=== PATIENT | female | born 1970 ===

== ENCOUNTER 2016-11-25 16:14 | Emergency (ER) | payer MEDICAID, OTHER ==
[2016-11-25 16:15] VITALS: BMI 42.8
--- NOTE | 2016-11-25 17:08 | C.PDOC ---
Chief Complaint (Nursing): Dizziness/Lightheaded Past Medical History Vital Signs: Last Vital Signs Temp 97.9 F 11/25/16 16:39 Pulse 85 11/25/16 16:39 Resp 16 11/25/16 16:39 BP 107/72 11/25/16 16:39 Pulse Ox 100 11/25/16 16:39 - Medical History PMH: Anxiety, Arthritis, Asthma, Depression, HTN Denies: HIV, Chronic Kidney Disease, Seizures, Sexually Transmitted Disease Family History: States: Unknown Family Hx - Social History Hx Tobacco Use: No Hx Alcohol Use: No Hx Substance Use: No - Immunization History Hx Tetanus Toxoid Vaccination: No Hx Influenza Vaccination: No Hx Pneumococcal Vaccination: No ED Course And Treatment O2 Sat by Pulse Oximetry: 100 Disposition - Disposition
[2016-11-25] MEDS ORDERED: Sodium Chloride 0.9% 1,000 ML IV ONE (17:15)
--- NOTE | 2016-11-25 17:24 | C.PDOC ---
Time Seen by Provider: 11/25/16 16:55 Chief Complaint (Nursing): Dizziness/Lightheaded Past Medical History Vital Signs: Last Vital Signs Temp 97.9 F 11/25/16 16:39 Pulse 85 11/25/16 16:39 Resp 16 11/25/16 16:39 BP 107/72 11/25/16 16:39 Pulse Ox 100 11/25/16 16:39 - Medical History PMH: Anxiety, Arthritis, Asthma, Depression, HTN Denies: HIV, Chronic Kidney Disease, Seizures, Sexually Transmitted Disease Family History: States: Unknown Family Hx - Social History Hx Tobacco Use: No Hx Alcohol Use: No Hx Substance Use: No - Immunization History Hx Tetanus Toxoid Vaccination: No Hx Influenza Vaccination: No Hx Pneumococcal Vaccination: No ED Course And Treatment O2 Sat by Pulse Oximetry: 100 Disposition - Disposition Forms: [employer] (Swedish)
--- NOTE | 2016-11-25 17:25 | C.PDOC ---
History Of Present Illness 46 y/o female with PMHx of HTN presents to ED with complaints of dizziness and lightheadedness with associated vision changes developing today. Patient also reports palpitations and denies shortness of breath, loc, headache, trauma or any other complaints at this time. Time Seen by Provider: 11/25/16 16:55 Chief Complaint (Nursing): Dizziness/Lightheaded History Per: Patient History/Exam Limitations: no limitations Onset/Duration Of Symptoms: Hrs Current Symptoms Are (Timing): Still Present Past Medical History Reviewed: Historical Data, Nursing Documentation, Vital Signs Vital Signs: Last Vital Signs Temp 97.9 F 11/25/16 16:39 Pulse 85 11/25/16 16:39 Resp 16 11/25/16 16:39 BP 107/72 11/25/16 16:39 Pulse Ox 100 11/25/16 18:58 - Medical History PMH: Anxiety, Arthritis, Asthma, Depression, HTN Surgical History: No Surg Hx Family History: States: No Known Family Hx - Social History Hx Tobacco Use: No Hx Alcohol Use: No Hx Substance Use: No - Immunization History Hx Tetanus Toxoid Vaccination: No Hx Influenza Vaccination: No Hx Pneumococcal Vaccination: No Review Of Systems Constitutional: Negative for: Fever, Chills Eyes: Negative for: Vision Change Cardiovascular: Positive for: Palpitations, Light Headedness Respiratory: Negative for: Shortness of Breath Gastrointestinal: Negative for: Nausea, Vomiting Neurological: Positive for: Dizziness. Negative for: Weakness, Numbness Psych: Negative for: Anxiety Physical Exam - Physical Exam Appears: Non-toxic, No Acute Distress Skin: Warm, Dry, No Rash Head: Atraumatic, Normacephalic Eye(s): bilateral: Normal Inspection, PERRL, EOMI Oral Mucosa: Moist Neck: Normal ROM, Supple Chest: Symmetrical Cardiovascular: Rhythm Regular Respiratory: Normal Breath Sounds, No Rales, No Rhonchi, No Wheezing Gastrointestinal/Abdominal: Soft, No Tenderness, No Guarding, No Rebound Extremity: Normal ROM, No Pedal Edema, Capillary Refill (<2 seconds) Extremity: Bilateral: Atraumatic Pulses: Left Radial: Normal, Right Radial: Normal Neurological/Psych: Oriented x3, Normal Speech, Normal Cognition, Normal Motor, Normal Sensation ED Course And Treatment - Laboratory Results Result Diagrams: 11/25/16 18:18 11/25/16 17:19 Lab Interpretation: No Acute Changes Urine POC: Negative ECG: Interpreted By Me ECG Rhythm: Sinus Rhythm ECG Interpretation: Normal Rate From EC O2 Sat by Pulse Oximetry: 100 (RA) Pulse Ox Interpretation: Normal - CT Scan/US No standard instances Other Rad Studies (CT/US): Read By Radiologist, Radiology Report Reviewed CT/US Interpretation: FINDINGS: HEMORRHAGE: No intracranial hemorrhage. BRAIN : There are mild chronic microangiopathic changes. There is no mass, mass effect or abnormal extra-axial fluid collection. VENTRICLES: The ventricles are normal in size, shape and configuration. CALVARIUM: The skull base and calvarium are normal. PARANASAL SINUSES: Predominantly clear. MASTOID AIR CELLS: Predominantly clear. OTHER FINDINGS: None. IMPRESSION: No acute intracranial abnormality. Progress Note: Treated with IVF NSS. Treated with meclizine 25 mg PO. On re- evaluation feeling better. Neuro intact, ambulating with steady gait Reassessment Condition: Improved Medical Decision Making Medical Decision Making: Plan: Blood work, CT scan Disposition Counseled Patient/Family Regarding: Studies Performed, Diagnosis, Need For Followup, Rx Given - Disposition Referrals: [facility] [Outside] [facility] [Outside] Disposition: HOME/ ROUTINE Disposition Time: 19:00 Condition: STABLE Additional Instructions: Follow up with your PMD or clinic Return to ED if any increase symptoms Prescriptions: Meclizine [Meclizine*] 25 mg PO Q12 PRN #10 tab PRN Reason: Dizziness Instructions: Vertigo (ED), Dizziness (ED) Forms: [employer] (Hungarian) - POA Present On Arrival: None - Clinical Impression Clinical Impression: Dizziness - PA / IMPROVEMENT INTERN / Resident Statement MD/DO has reviewed & agrees with the documentation as recorded. - Scribe Statement The provider has reviewed the documentation as recorded by the Lopezibhamilton Lala All medical record entries made by the Dayana were at my direction and personally dictated by me. I have reviewed the chart and agree that the record accurately reflects my personal performance of the history, physical exam, medical decision making, and the department course for this patient. I have also personally directed, reviewed, and agree with the discharge instructions and disposition.
[2016-11-25 17:32] LABS: CHLORIDE 100 mmol/L (98-107)
[2016-11-25 17:33] LABS: POTASSIUM 3.6 mmol/L (3.6-5.2); SODIUM 134 mmol/L (132-148)
[2016-11-25 17:35] LABS: BILIRUBIN,TOTAL 0.4 mg/dL (0.2-1.3); CARBON DIOXIDE 24 mmol/L (22-30); GFR AFRICAN-AMERICAN > 60
[2016-11-25 17:36] LABS: ALB/GLOB RATIO 1.2 (1.0-2.1); ALKALINE PHOSPHATASE 85 U/L (38-126); ALT/SGPT 35 U/L (9-52); AST/SGOT 27 U/L (14-36); BLOOD UREA NITROGEN 11 mg/dL (7-17); CALCIUM 8.8 mg/dl (8.6-10.4); GLUCOSE,RANDOM 77 mg/dL (65-105); TOTAL PROTEIN 7.6 g/dL (6.3-8.3)
--- NOTE | 2016-11-25 17:48 | CT ---
PROCEDURE: CT HEAD WITHOUT CONTRAST. HISTORY: Dizziness COMPARISON: None available. TECHNIQUE: Axial computed tomography images were obtained through the head/brain without intravenous contrast. Radiation dose: Total exam DLP = 831.47 mGy-cm. This CT exam was performed using one or more of the following dose reduction techniques: Automated exposure control, adjustment of the mA and/or kV according to patient size, and/or use of iterative reconstruction technique. FINDINGS: HEMORRHAGE: No intracranial hemorrhage. BRAIN: There are mild chronic microangiopathic changes. There is no mass, mass effect or abnormal extra-axial fluid collection. VENTRICLES: The ventricles are normal in size, shape and configuration. CALVARIUM: The skull base and calvarium are normal. PARANASAL SINUSES: Predominantly clear. MASTOID AIR CELLS: Predominantly clear. OTHER FINDINGS: None. IMPRESSION: No acute intracranial abnormality.
[2016-11-25 17:49] LABS: RBC URINE 1 /hpf (0-3); URINE BILIRUBIN NEGATIVE (NEGATIVE); URINE BLOOD NEGATIVE (NEGATIVE); URINE COLOR Yellow (YELLOW); URINE GLUCOSE (UA) NORMAL (Normal); URINE KETONE NEGATIVE (NEGATIVE); URINE LEUKOCYTE ESTERASE NEG Leu/uL (Negative); URINE PROTEIN NEGATIVE (NEGATIVE); URINE UROBILINOGEN NORMAL mg/dL (0.2-1.0); WBC URINE 2 /hpf (0-5)
[2016-11-25 18:23] LABS: BASO # 0.1 K/uL (0.0-0.2); BASO % 1.2 % (0.0-2.0); EOS # 0.3 K/uL (0.0-0.7); EOS % 3.7 % (0.0-4.0); HEMATOCRIT 29.5 % (34.0-47.0); LYMPH # 2.1 K/uL (1.0-4.3); LYMPH % 23.8 % (20.0-40.0); MEAN CORPUSCULAR HEMOGLOBIN 25.9 pg (27.0-31.0); MEAN CORPUSCULAR HGB CONC 31.9 g/dL (33.0-37.0); MEAN PLATELET VOLUME 11.6 fL (7.2-11.7); MONO # 0.9 K/uL (0.0-0.8); MONO % 10.1 % (0.0-10.0); RED CELL DISTRIBUTION WIDTH 15.7 % (11.5-14.5); WHITE BLOOD COUNT 8.7 K/uL (4.8-10.8)
[2016-11-25 18:26] LABS: MEAN CELL VOLUME 81.2 fL (81.0-99.0)
[2016-11-25 19:12] VITALS: BP 110/78; PULSE 78; RESP 18; TEMP 98.2; O2SAT 98
--- NOTE | 2016-11-27 12:27 | CARD ---
APPROVED REPORT EKG Measurement Heart [id number] RI 132P22 [id number] <Conclusion> Normal sinus rhythm Normal ECG
== END 2016-11-25 19:11 | disposition home or self-care (01) ==
LOC: C.ER 16:14
DX: R42 Dizziness and giddiness (principal)
CPT/HCPCS: 70450; 80053; 81001; 82948; 84703; 85025; 93005; 96360; 99285; J7040

== ENCOUNTER 2017-04-12 22:24 | Emergency (ER) | payer MEDICAID, OTHER ==
[2017-04-12 22:24] VITALS: BMI 42.8
[2017-04-12] MEDS ORDERED: Albuterol-Ipratrop 3 mg / 0.5 (3 ml) UD INH STA ×3 (22:49→22:50)
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
[2017-04-12] MEDS ORDERED: Sodium Chloride 0.9% 1,000 ML IV ONE (22:51)
[2017-04-12] MEDS ORDERED: Albuterol-Ipratrop 3 mg / 0.5 (3 ml) UD ONE (22:52)
--- NOTE | 2017-04-12 22:53 | C.PDOC ---
Chief Complaint (Nursing): Shortness Of Breath Past Medical History Vital Signs: Last Vital Signs Temp 97.9 F 04/12/17 22:34 Pulse 88 04/12/17 22:34 Resp 16 04/12/17 22:34 BP 129/85 04/12/17 22:34 Pulse Ox 99 04/12/17 22:34 - Medical History PMH: Anxiety, Arthritis, Asthma, Back Problems, Depression, HTN Denies: HIV, Chronic Kidney Disease, Seizures, Sexually Transmitted Disease Family History: States: Unknown Family Hx - Social History Hx Tobacco Use: No Hx Alcohol Use: No Hx Substance Use: No - Immunization History Hx Tetanus Toxoid Vaccination: No Hx Influenza Vaccination: No Hx Pneumococcal Vaccination: No ED Course And Treatment O2 Sat by Pulse Oximetry: 99 Disposition - Disposition
[2017-04-12] MEDS ORDERED: MethylPREDNISolone 40 mg Vial IVP ONE (22:56)
[2017-04-12 22:57] LABS: BASO # 0.1 K/uL (0.0-0.2); BASO % 0.9 % (0.0-2.0); EOS # 0.6 K/uL (0.0-0.7); EOS % 6.5 % (0.0-4.0); HEMOGLOBIN 11.7 g/dL (11.0-16.0); LYMPH # 2.2 K/uL (1.0-4.3); LYMPH % 23.2 % (20.0-40.0); MEAN CORPUSCULAR HGB CONC 33.5 g/dL (33.0-37.0); MEAN PLATELET VOLUME 10.9 fL (7.2-11.7); MONO # 0.9 K/uL (0.0-0.8); MONO % 9.3 % (0.0-10.0); NEUT # 5.8 K/uL (1.8-7.0); NEUT % 60.1 % (50.0-75.0); RBC 4.04 Mil/uL (3.80-5.20); RED CELL DISTRIBUTION WIDTH 22.5 % (11.5-14.5)
[2017-04-12 22:58] LABS: MEAN CELL VOLUME 86.6 fL (81.0-99.0); WHITE BLOOD COUNT 9.7 K/uL (4.8-10.8)
[2017-04-12 23:09] LABS: ALT/SGPT 29 U/L (9-52); AST/SGOT 31 U/L (14-36); BLOOD UREA NITROGEN 13 mg/dL (7-17); CALCIUM 9.3 mg/dl (8.6-10.4); GFR AFRICAN-AMERICAN > 60; GFR NON-AFRICAN AMERICAN > 60
[2017-04-13 00:19] VITALS: BP 100/65; PULSE 86; RESP 18; TEMP 97.4
[2017-04-13 00:30] VITALS: O2SAT 99
--- NOTE | 2017-04-13 08:26 | RAD ---
Chest x-ray two views History: Shortness of breath. Comparison: 11/10/2015 Findings: No focal infiltrate or effusion. Bibasilar breast nipple shadows. Heart size within normal limits. Impression: No focal infiltrate or effusion.
--- NOTE | 2017-04-13 19:50 | CARD ---
APPROVED REPORT EKG Measurement Heart [id number] DC 130P47 [id number] <Conclusion> Normal sinus rhythm Normal ECG
== END 2017-04-13 00:56 | disposition home or self-care (01) ==
LOC: C.ER 22:24
DX: J45.909 Unspecified asthma, uncomplicated (principal); I10 Essential (primary) hypertension
CPT/HCPCS: 71046; 80053; 85025; 93005; 94640; 96374; 99283; J2920; J7040

== ENCOUNTER 2017-06-03 16:31 | Emergency (ER) | payer MEDICAID, OTHER ==
[2017-06-03 16:31] VITALS: BMI 42.8
--- NOTE | 2017-06-03 18:20 | RAD ---
PROCEDURE: Left Ankle Radiographs. HISTORY: ankle injury, pain COMPARISON: None FINDINGS: BONES: No acute fracture. Large plantar calcaneal spur. JOINTS: Normal. No osteoarthritis. Ankle mortise maintained. Talar dome intact SOFT TISSUES: Normal. OTHER FINDINGS: None. IMPRESSION: No acute findings related to/accounting for the clinical presentation. Additional benign and/or incidental findings described above. Concordant results with the preliminary interpretation rendered by the emergency department physician procedure.
--- NOTE | 2017-06-03 18:20 | RAD ---
PROCEDURE: Radiographs of the left tibia and fibula. HISTORY: injury and pain COMPARISON: None available. TECHNIQUE: Frontal and lateral views obtained. FINDINGS: BONES: No fracture or destructive lesion. JOINT SPACES: Unremarkable. OTHER FINDINGS: None. IMPRESSION: Unremarkable radiographs of the left tibia and fibula. Concordant results with the preliminary interpretation rendered by the emergency department physician procedure.
--- NOTE | 2017-06-03 18:21 | RAD ---
PROCEDURE: Right Knee Radiographs. HISTORY: Posttraumatic pain COMPARISON: None. FINDINGS: BONES: Normal. No fracture. JOINTS: Normal. No osteoarthritis. JOINT EFFUSION: None. OTHER FINDINGS: None. IMPRESSION: Normal radiographs of the right knee. Concordant results with the preliminary interpretation rendered by the emergency department physician procedure.
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
[2017-06-03 18:31] VITALS: BP 136/91; PULSE 82; RESP 18; TEMP 98.1
[2017-06-03 22:17] VITALS: O2SAT 99
== END 2017-06-03 18:48 | disposition home or self-care (01) ==
LOC: C.ER 16:31
DX: S83.91XA Sprain of unspecified site of right knee, initial encounter (principal); S93.402A Sprain of unspecified ligament of left ankle, initial encounter; X50.1XXA Overexertion from prolonged static or awkward postures, initial encounter; Y93.02 Activity, running; Y92.89 Other specified places as the place of occurrence of the external cause

== ENCOUNTER 2017-06-25 20:40 | Emergency (ER) | payer MEDICAID, OTHER ==
[2017-06-25 20:40] VITALS: BMI 42.8
[2017-06-25] MEDS ORDERED: Belladonna-Phenobarbital PO STA (21:28)
[2017-06-25] MEDS ORDERED: Lactated Ringer's 1,000 ML IVB STA (21:29)
[2017-06-25] MEDS ORDERED: Belladonna-Phenobarbital ONE (21:49)
[2017-06-25] MEDS ORDERED: Lactated Ringer's 1,000 ML ONE (21:50)
[2017-06-25 22:01] LABS: SQUAMOUS EPITHIAL 9 /hpf (0-5); URINE BILIRUBIN NEGATIVE (NEGATIVE); URINE BLOOD 1+ (NEGATIVE); URINE CLARITY Hazy (Clear); URINE COLOR Amber (YELLOW); URINE GLUCOSE (UA) NORMAL (Normal); URINE LEUKOCYTE ESTERASE 1+ Leu/uL (Negative); URINE PROTEIN 1+ mg/dL (NEGATIVE); URINE UROBILINOGEN NORMAL mg/dL (0.2-1.0)
[2017-06-25 22:03] LABS: HCG,QUALITATIVE URINE NEGATIVE (NEGATIVE)
[2017-06-25 22:10] LABS: ALBUMIN 3.9 g/dL (3.5-5.0); BASO # 0.1 K/uL (0.0-0.2); BASO % 1.9 % (0.0-2.0); CALCIUM 9.5 mg/dl (8.6-10.4); EOS # 0.3 K/uL (0.0-0.7); EOS % 5.4 % (0.0-4.0); GFR AFRICAN-AMERICAN > 60; GFR NON-AFRICAN AMERICAN > 60; HEMOGLOBIN 12.4 g/dL (11.0-16.0); LIPASE 63 U/L (23-300); LYMPH # 1.7 K/uL (1.0-4.3); LYMPH % 26.5 % (20.0-40.0); MEAN CELL VOLUME 88.9 fL (81.0-99.0); MEAN CORPUSCULAR HEMOGLOBIN 30.4 pg (27.0-31.0); MEAN CORPUSCULAR HGB CONC 34.2 g/dL (33.0-37.0); MONO # 0.7 K/uL (0.0-0.8); MONO % 11.6 % (0.0-10.0); NEUT # 3.4 K/uL (1.8-7.0); NEUT % 54.6 % (50.0-75.0); NRBC % 0.1 % (0.0-2.0); RBC 4.07 Mil/uL (3.80-5.20); RED CELL DISTRIBUTION WIDTH 13.2 % (11.5-14.5); WHITE BLOOD COUNT 6.2 K/uL (4.8-10.8)
[2017-06-25 22:11] LABS: ALT/SGPT 28 U/L (9-52); AST/SGOT 26 U/L (14-36); BLOOD UREA NITROGEN 8 mg/dL (7-17)
[2017-06-25] MEDS ORDERED: Iodixanol 320 MG/ML 100 ML BOTTLE IV ONE (23:07)
--- NOTE | 2017-06-26 00:26 | CT ---
EXAM: CT Abdomen and Pelvis With Intravenous Contrast CLINICAL HISTORY: 46 years old, female; Pain; Abdominal pain; Flank; Left lower quadrant (llq); Additional info: Lower abdominal pain. Diarrhea. H/o gastric bypass TECHNIQUE: Axial computed tomography images of the abdomen and pelvis with intravenous contrast. All CT scans at this facility use one or more dose reduction techniques, viz.: automated exposure control; ma/kV adjustment per patient size (including targeted exams where dose is matched to indication; i.e. head); or iterative reconstruction technique. Coronal and sagittal reformatted images were created and reviewed. CONTRAST: 100 mL of visipaque 320 administered intravenously. COMPARISON: No relevant prior studies available. FINDINGS: Lung bases: Unremarkable. No mass. No consolidation. Mediastinum: A small hiatal hernia is present. ABDOMEN: Liver: There is diffuse mild enlargement of the liver. Gallbladder and bile ducts: Unremarkable. No calcified stones. No ductal dilation. Pancreas: Unremarkable. No mass. No ductal dilation. Spleen: Unremarkable. No splenomegaly. Adrenals: Unremarkable. No mass. Kidneys and ureters: There is a left renal collecting system calcification. The right kidney is normal. No hydronephrosis. Stomach and bowel: There has been a gastric stapling and bypass. The colon is mildly distended with fluid and air. The terminal ileum, cecum and ascending colon appear mildly thickwalled with minimal stranding of the adjacent fat. Findings could be secondary to acute ileocolitis. PELVIS: Appendix: Not visualized. Bladder: Unremarkable. No mass. Reproductive: Unremarkable as visualized. ABDOMEN and PELVIS: Intraperitoneal space: Unremarkable. No free air. No significant fluid collection. Bones/joints: No acute fracture. No dislocation. Soft tissues: Unremarkable. Vasculature: Unremarkable. No abdominal aortic aneurysm. Lymph nodes: There are multiple mildly prominent right lower quadrant mesenteric lymph nodes measuring up to 14 mm. IMPRESSION: Mildly thickwalled terminal ileum and right colon. Possible acute ileocolitis. Clinical correlation recommended. Gastric bypass. Nonspecific hepatomegaly.
[2017-06-26 00:43] VITALS: BP 125/82; PULSE 64; RESP 18; TEMP 98.5
[2017-06-26 00:44] VITALS: O2SAT 99
--- NOTE | 2017-06-26 00:44 | C.PDOC ---
Time Seen by Provider: 06/25/17 21:17 Chief Complaint (Nursing): Abdominal Pain History Per: Patient Onset/Duration Of Symptoms: Days (5) Current Symptoms Are (Timing): Still Present Severity: Moderate Location Of Pain/Discomfort: RLQ, LLQ, Suprapubic Quality Of Discomfort: "Pain" Associated Symptoms: Nausea, Diarrhea Exacerbating Factors: Food Alleviating Factors: None Additional History Per: Prior Records Past Medical History Reviewed: Historical Data, Nursing Documentation, Vital Signs Vital Signs: Last Vital Signs Temp 98.1 F 06/25/17 20:54 Pulse 79 06/25/17 20:54 Resp 20 06/25/17 20:54 BP 129/85 06/25/17 20:54 Pulse Ox 99 06/25/17 20:54 - Medical History PMH: Anxiety, Arthritis, Asthma, Back Problems, Depression, HTN Other Surgeries: Gastric Bypass Family History: States: Unknown Family Hx - Social History Hx Tobacco Use: No Hx Alcohol Use: No Hx Substance Use: No - Immunization History Hx Tetanus Toxoid Vaccination: No Hx Influenza Vaccination: No Hx Pneumococcal Vaccination: No Review Of Systems Except As Marked, All Systems Reviewed And Found Negative. Constitutional: Negative for: Fever, Weakness Cardiovascular: Negative for: Chest Pain Respiratory: Negative for: Shortness of Breath Gastrointestinal: Positive for: Nausea, Abdominal Pain, Diarrhea. Negative for : Vomiting, Melena, Hematochezia, Hematemesis Genitourinary: Negative for: Dysuria Musculoskeletal: Negative for: Neck Pain, Back Pain Skin: Negative for: Rash Neurological: Negative for: Weakness, Numbness Physical Exam - Physical Exam Appears: Non-toxic, No Acute Distress Skin: Normal Color, Warm, Dry, No Rash Head: Atraumatic, Normacephalic Eye(s): bilateral: Normal Inspection, PERRL, EOMI Neck: Normal ROM, Supple Cardiovascular: Rhythm Regular Respiratory: Normal Breath Sounds, No Accessory Muscle Use Gastrointestinal/Abdominal: Soft, Tenderness (lower abdomen), No Guarding, No Rebound Back: No CVA Tenderness Extremity: Normal ROM Neurological/Psych: Oriented x3, Normal Motor, Normal Sensation ED Course And Treatment - Laboratory Results Result Diagrams: 06/25/17 21:53 06/25/17 21:53 Urine POC: Negative O2 Sat by Pulse Oximetry: 99 Pulse Ox Interpretation: Normal - CT Scan/US CT abd/pelv Other Rad Studies (CT/US): Read By Radiologist, Radiology Report Reviewed CT/US Interpretation: IMPRESSION: Mildly thickwalled terminal ileum and right colon. Possible acute ileocolitis. Clinical correlation recommended. . Gastric bypass. . Nonspecific hepatomegaly. Progress Note: Pt was started on Cipro and Flagyl by her PMD. Reassessment Condition: Improved Progress - Interventions Interventions:: Observation, Intravenous fluid - Medications Administered Intravenous: Antiemetic - Data Reviewed Data Reviewed: Lab, Diagnostic imaging, Old records - Patient Status Patient status: Mostly improved - Continuity of Care Discussed patient case with:: Patient, Family-HIPPA compliant, ED Nurse - Patient Plan Patient Plan: Discharge, F/U with PCP, Continue present meds Disposition Counseled Patient/Family Regarding: Studies Performed, Diagnosis, Need For Followup, Rx Given - Disposition Disposition: HOME/ ROUTINE Disposition Time: 00:45 Condition: IMPROVED Additional Instructions: Follow up with your doctor for further evaluation and treatment. Return to the ER if you develop fever, vomiting, bloody stools, worsening of symptoms or if you have any other concerns. Prescriptions: Dicyclomine [Bentyl] 20 mg PO QID PRN #20 tab PRN Reason: Irritable Bowel Symptoms Ondansetron [Zofran] 4 mg PO Q8H PRN #15 tab PRN Reason: Nausea/Vomiting Instructions: Diarrhea and Traveler's Diarrhea, Adult (DC) - Clinical Impression Clinical Impression: Abdominal pain, Acute diarrhea
== END 2017-06-26 00:54 | disposition home or self-care (01) ==
LOC: C.ER 20:40
DX: R19.7 Diarrhea, unspecified (principal); R10.30 Lower abdominal pain, unspecified; I10 Essential (primary) hypertension
CPT/HCPCS: 74177; 80053; 81001; 83690; 84703; 85025; 99284; J7120; Q9967

== ENCOUNTER 2018-03-14 16:30 | Outpatient (CLI) | payer OTHER | END 2018-03-14 16:31 | disposition home or self-care (01) | LOC: C.MRIC 16:30 | DX: R42 Dizziness and giddiness (principal); R56.9 Unspecified convulsions ==

== ENCOUNTER 2018-04-07 09:59 | Outpatient (CLI) | payer OTHER | END 2018-04-07 10:00 | disposition home or self-care (01) | LOC: C.EEG 09:59 | DX: R42 Dizziness and giddiness (principal) ==

== ENCOUNTER 2018-06-24 11:19 | Outpatient (CLI) | payer OTHER | END 2018-06-24 11:20 | disposition home or self-care (01) | LOC: C.RT 11:20 | DX: Z01.818 Encounter for other preprocedural examination (principal) ==